=== PATIENT | male | born 1990 | race Caucasian/White ===

== ENCOUNTER 2020-10-18 07:33 | Inpatient (IN) ==
[2020-10-18] MEDS ORDERED: LORazepam 2 mg VIAL 1 ml IV PUSH ONE (09:08)
[2020-10-18] MEDS ORDERED: Lorazepam PYXIS KEY PRN ×2 (09:08→09:13)
[2020-10-18] MEDS ORDERED: LORazepam 2 mg VIAL 1 ml IM ONE (09:13)
[2020-10-18] MEDS ORDERED: Lorazepam PYXIS KEY ONE (09:19)
[2020-10-18 09:40] LABS: ABS Lymphocytes 1.3 10^3/ul (1.0-4.8); ABS Monocytes 1.4 10^3/ul (0-0.8); ABS Neutrophils 14.5 10^3/ul (1.5-7.7); Eosinophil % 0.2 %; Hematocrit 44 % (42-52); Hemoglobin 15.5 g/dL (14.0-18.0); Lymphocyte % 7.3 %; Mean Corpuscular HGB Conc 35 g/dL (31-36); Mean Corpuscular Hemoglobin 31 pg (27-31); Mean Corpuscular Volume 87 fL (80-94); Platelet Count 212 10^3/uL (150-450); Red Blood Count 5.07 10^6 /uL (4.18-5.48); Red Cell Distribution Width 13 % (10-15); White Blood Count 17.2 10^3/uL (3.5-10.8)
[2020-10-18 09:59] LABS: ALT 220 U/L (7-52); AST 97 U/L (13-39); Albumin 5.2 g/dL (3.2-5.2); Albumin/Globulin Ratio 1.6 (1-3); Alkaline Phosphatase 91 U/L (34-104); Anion Gap 11 mmol/L (2-11); BUN/Creatinine Ratio 29.2 (8-20); Blood Urea Nitrogen 28 mg/dL (6-24); CO2 Carbon Dioxide 25 mmol/L (22-32); Calcium 10.7 mg/dL (8.6-10.3); Chloride 95 mmol/L (101-111); EGFR African American 112.9 (>60); EGFR Non-African American 93.3 (>60); Globulin 3.3 g/dL (2-4); Glucose 112 mg/dL (70-100); Potassium 3.8 mmol/L (3.5-5.0); Sodium 131 mmol/L (135-145); Total Protein 8.5 g/dL (6.4-8.9)
[2020-10-18 10:05] LABS: HCG Pregnancy < 0.60 mIU/mL
[2020-10-18 10:07] LABS: Acetaminophen < 15 mcg/mL; Alcohol, S < 10 mg/dL (<10); Salicylate < 2.50 mg/dL (<30)
[2020-10-18 10:23] LABS: TSH Ultra Thyroid Stim Horm 0.94 mcIU/mL (0.34-5.60)
[2020-10-18] MEDS ORDERED: diPHENhydraMINE 25 mg TAB PO ONE (11:53)
[2020-10-18] MEDS ORDERED: diPHENhydraMINE 25 mg TAB ONE (11:55)
[2020-10-18 13:31] LABS: Urine Appearance Clear; Urine Bilirubin Negative (Negative); Urine Blood 1+ (Negative); Urine Color Yellow; Urine Glucose Negative (Negative); Urine Ketones 2+ (Negative); Urine Nitrite Negative (Negative); Urine Protein 2+(100 mg/dL) (Negative); Urine Specific Gravity 1.029 (1.010-1.030); Urine Urobilinogen Negative (Negative)
[2020-10-18 13:35] LABS: Urine Bacteria Absent (Absent); Urine Red Blood Cell Trace(0-2/hpf) (Absent); Urine Squamous Epithelial Cell Present (Absent); Urine White Blood Cell 2+(11-20/hpf) (Absent)
[2020-10-18 13:45] LABS: Urine Benzodiazepine Screen None Detected (None Detect); Urine Cannabinoids Screen None Detected (None Detect); Urine Opiates Screen None Detected (None Detect)
[2020-10-18] MEDS ORDERED: Al Hydrox/Mg Hydrox/Simet LIQ 30 ML UDC PO PRN (17:17)
[2020-10-19] MEDS: Buprenorp/Nalox 8-2 MG FILM SL FILM SCH ×2 (10:58→20:15)
[2020-10-19] MEDS: Nicotine GUM 4MG FRUIT FLAVOR PO PRN ×3 (10:58→17:40)
[2020-10-20] MEDS: Nicotine PATCH 21 MG/24 HR PATCH TRANSDERM SCH (07:50)
[2020-10-20] MEDS: Buprenorp/Nalox 8-2 MG FILM SL FILM SCH ×2 (09:21→20:01)
[2020-10-20] MEDS: Nicotine GUM 4MG FRUIT FLAVOR PO PRN (11:09)
[2020-10-20] MEDS ORDERED: Phenylephrine 0.5% NASAL BTL BOTH NARES PRN (13:25)
[2020-10-20] MEDS: Nicotine Lozenge mini 4 MG LOZNG.MINI MT PRN ×2 (16:05→20:04)
[2020-10-20] MEDS: Phenylephrine 0.5% NASAL BTL BOTH NARES SCH ×2 (16:06→20:02)
[2020-10-20 16:35] LABS: Urine Appearance Clear; Urine Bilirubin Negative (Negative); Urine Blood Negative (Negative); Urine Color Yellow; Urine Glucose Negative (Negative); Urine Ketones Negative (Negative); Urine Nitrite Negative (Negative); Urine Protein Negative (Negative); Urine Specific Gravity 1.026 (1.010-1.030); Urine Urobilinogen Negative (Negative)
[2020-10-20 16:51] LABS: Urine Benzodiazepine Screen None Detected (None Detect); Urine Cannabinoids Screen None Detected (None Detect); Urine Opiates Screen None Detected (None Detect)
[2020-10-20 21:13] LABS: Urine Buprenorphine Screen Presumptive Positive (None Detect); Urine Fentanyl Screen None Detected (None Detect); Urine Hydrocodone Screen None Detected (None Detect)
[2020-10-21] MEDS: Nicotine Lozenge mini 4 MG LOZNG.MINI MT PRN ×5 (08:41→20:12)
[2020-10-21] MEDS: Nicotine PATCH 21 MG/24 HR PATCH TRANSDERM SCH (08:42)
[2020-10-21] MEDS: Buprenorp/Nalox 8-2 MG FILM SL FILM SCH (08:42)
[2020-10-21] MEDS: Phenylephrine 0.5% NASAL BTL BOTH NARES SCH ×4 (08:42→20:13)
[2020-10-21 10:01] LABS: Albumin 4.1 g/dL (3.2-5.2); CO2 Carbon Dioxide 17 mmol/L (22-32); Chloride 108 mmol/L (101-111); Sodium 136 mmol/L (135-145)
[2020-10-21 10:06] LABS: BUN/Creatinine Ratio 21.1 (8-20); Blood Urea Nitrogen 15 mg/dL (6-24); EGFR African American 159.8 (>60); EGFR Non-African American 132.1 (>60); Glucose 52 mg/dL (70-100)
[2020-10-21 11:26] LABS: Anion Gap 11 mmol/L (2-11)
[2020-10-21] MEDS: Buprenorp/Nalox 4-1 MG FILM SL FILM SCH ×3 (13:58→20:09)
[2020-10-21] MEDS: Nicotine GUM 4MG FRUIT FLAVOR PO PRN (16:02)
[2020-10-22 07:39] LABS: Hematocrit 48 % (42-52); Hemoglobin 16.4 g/dL (14.0-18.0); Mean Corpuscular HGB Conc 34 g/dL (31-36); Mean Corpuscular Hemoglobin 31 pg (27-31); Mean Corpuscular Volume 90 fL (80-94); Mean Platelet Volume 10.9 fL (7.4-10.4); Platelet Count 150 10^3/uL (150-450); Red Blood Count 5.38 10^6 /uL (4.18-5.48); Red Cell Distribution Width 13 % (10-15); White Blood Count 6.2 10^3/uL (3.5-10.8)
[2020-10-22 07:40] LABS: ABS Eosinophils 0.3 10^3/ul (0-0.6); ABS Lymphocytes 2.1 10^3/ul (1.0-4.8); ABS Monocytes 0.7 10^3/ul (0-0.8); ABS Neutrophils 3.1 10^3/ul (1.5-7.7); Eosinophil % 4.4 %; Lymphocyte % 34.5 %; Nucleated Red Blood Cells % 0.1
[2020-10-22] MEDS: Nicotine Lozenge mini 4 MG LOZNG.MINI MT PRN ×3 (07:42→15:23)
[2020-10-22 08:03] LABS: ALT 181 U/L (7-52); Alkaline Phosphatase 79 U/L (34-104); Cholesterol 201 mg/dL; HDL Cholesterol 58.9 mg/dL; LDL Cholesterol 128 mg/dL; Total Protein 7.9 g/dL (6.4-8.9); Triglycerides 73 mg/dL
[2020-10-22] MEDS: Phenylephrine 0.5% NASAL BTL BOTH NARES SCH ×2 (09:10→12:23)
[2020-10-22] MEDS: Nicotine PATCH 21 MG/24 HR PATCH TRANSDERM SCH (09:11)
[2020-10-22] MEDS: Buprenorp/Nalox 4-1 MG FILM SL FILM SCH ×2 (09:11→12:23)
[2020-10-22 11:19] VITALS: BP 115/78
[2020-10-22] MEDS: Nicotine GUM 4MG FRUIT FLAVOR PO PRN (12:24)
== END 2020-10-22 16:16 | disposition home or self-care (01) | DRG 776 ==
LOC: ED 07:33 → BSU 17:10
PROVIDERS: ADMIT Psychiatry & Neurology Psychiatry; ATTEND Psychiatry & Neurology Psychiatry

== ENCOUNTER 2021-04-24 19:49 | Inpatient (IN) ==
[2021-04-24] MEDS ORDERED: Nicotine PATCH 21 MG/24 HR PATCH TRANSDERM ONE (20:43)
[2021-04-24 21:49] LABS: Urine Benzodiazepine Screen None Detected (None Detect); Urine Cannabinoids Screen None Detected (None Detect); Urine Opiates Screen None Detected (None Detect)
[2021-04-24 22:22] LABS: ABS Basophils 0.1 10^3/ul (0-0.2); ABS Eosinophils 0.7 10^3/ul (0-0.6); ABS Lymphocytes 3.4 10^3/ul (1.0-4.8); ABS Monocytes 1.4 10^3/ul (0-0.8); ABS Neutrophils 7.2 10^3/ul (1.5-7.7); Eosinophil % 5.2 %; Hematocrit 42 % (42-52); Hemoglobin 14.4 g/dL (14.0-18.0); Lymphocyte % 26.8 %; Mean Corpuscular HGB Conc 34 g/dL (31-36); Mean Corpuscular Hemoglobin 30 pg (27-31); Mean Corpuscular Volume 88 fL (80-94); Mean Platelet Volume 9.5 fL (7.4-10.4); Platelet Count 198 10^3/uL (150-450); Red Blood Count 4.77 10^6 /uL (4.18-5.48); Red Cell Distribution Width 14 % (10-15); White Blood Count 12.7 10^3/uL (3.5-10.8)
[2021-04-24 22:43] LABS: ALT 50 U/L (7-52); AST 30 U/L (13-39); Acetaminophen < 15 mcg/mL; Albumin 4.4 g/dL (3.2-5.2); Albumin/Globulin Ratio 1.6 (1-3); Alcohol, S < 13 mg/dL (<10); Alkaline Phosphatase 79 U/L (35-149); Anion Gap 7 mmol/L (2-11); Blood Urea Nitrogen 10 mg/dL (6-24); CO2 Carbon Dioxide 28 mmol/L (22-32); Calcium 9.3 mg/dL (8.6-10.3); Chloride 101 mmol/L (101-111); EGFR African American 158.7 (>60); EGFR Non-African American 131.2 (>60); Globulin 2.8 g/dL (2-4); Glucose 101 mg/dL (70-100); Potassium 4.2 mmol/L (3.5-5.0); Salicylate < 2.50 mg/dL (<30); Sodium 136 mmol/L (135-145); Total Protein 7.2 g/dL (6.4-8.9)
[2021-04-24 22:57] LABS: TSH Ultra Thyroid Stim Horm 1.02 mcIU/mL (0.34-5.60)
[2021-04-25] MEDS: Nicotine PATCH 21 MG/24 HR PATCH TRANSDERM SCH (07:46)
[2021-04-25] MEDS: Vitamin THERAPEUTIC TAB PO SCH (07:46)
[2021-04-25] MEDS: Al Hydrox/Mg Hydrox/Simet LIQ 30 ML UDC PO PRN ×2 (07:46→12:06)
[2021-04-25] MEDS: Nicotine GUM 2MG FRUIT FLAVOR PO PRN ×4 (07:48→19:38)
[2021-04-25] MEDS: chlorproMAZINE TAB 50 MG Q6H PRN AGITATION PO (20:04)
[2021-04-26] MEDS: chlorproMAZINE TAB 50 MG Q6H PRN AGITATION PO (07:46)
[2021-04-26] MEDS: Nicotine PATCH 21 MG/24 HR PATCH TRANSDERM SCH (08:49)
[2021-04-26] MEDS: Vitamin THERAPEUTIC TAB PO SCH (08:49)
[2021-04-26] MEDS: Nicotine GUM 2MG FRUIT FLAVOR PO PRN ×3 (10:48→20:10)
[2021-04-27] MEDS: Nicotine GUM 2MG FRUIT FLAVOR PO PRN (03:48)
[2021-04-27] MEDS: Vitamin THERAPEUTIC TAB PO SCH (07:26)
[2021-04-27] MEDS: Nicotine PATCH 21 MG/24 HR PATCH TRANSDERM SCH (07:28)
[2021-04-27 09:59] VITALS: BP 150/80
== END 2021-04-27 11:27 | disposition home or self-care (01) | DRG 773 ==
LOC: ED 19:49 → BSU 22:00
PROVIDERS: ADMIT Psychiatry & Neurology Addiction Psychiatry; ATTEND Psychiatry & Neurology Addiction Psychiatry